=== PATIENT | female | born 1935 | race Caucasian/White ===

== ENCOUNTER → 2018-07-01 | Outpatient (REF) | payer MEDICARE ==
[~2018-07-01] MED LIST: AMLODIPINE10 MG PO; ASPIRIN 8181 MG PO; B-125000 MCG SL; CALCIUM 6001 TAB PO; CATAPRES-T0.3 MG/24 TD; CELEBREX200 MG PO; DETROL2 MG PO; FLEXERIL PO; FLUARIX QUADRIV1 IN1 IM; FLUARIX QUADRIV1 INJ IM; LISINOPRIL40 MG PO; LORTAB 5 PO; LOTRISONE EX; MELOXICAM15 MG PO; MELOXICAM7.5 MG PO; METOPROLOL SUC100 MG PO; METOPROLOL TART50 MG PO; NEXIUM 24HR20 MG PO; NEXIUM40 M1 OR; NIACIN50 MG PO; OSTEO BI-FLE PO; OXYBUTYNIN5 M1 PO; PANTOPRAZOLE SO40 MG PO; PRILOSEC40 MG PO; RANITIDINE150 M1 PO; ROLAIDS PO; TERAZOSIN10 MG PO; TET/DIP TOX1 ML IM; VALSARTAN160 MG PO
== END | disposition home or self-care (01) ==
LOC: BD 14:07
PROVIDERS: ATTEND Internal Medicine
DX: N95.1 Menopausal and female climacteric states (principal)